=== PATIENT | female | born 1980 | race African-American/Black ===

== ENCOUNTER 2023-12-20 10:37 | Emergency (ER) | payer BC ==
[2023-12-20 10:58] VITALS: BP 141/84; PULSE 71; RESP 18; TEMP 98; BMI 23.5
[2023-12-20] MEDS ORDERED: IBUPROFEN 600 MG TABLET (FP) PO ONE (11:54)
[2023-12-20] MEDS ORDERED: ACETAMINOPHEN 500 MG TABLET (FP) ONE (11:54)
[2023-12-20] MEDS: ACETAMINOPHEN 500 MG TABLET (FP) PO ONE (11:57)
[2023-12-20] MEDS: IBUPROFEN 600 MG TABLET (FP) PO ONE (11:57)
[2023-12-20 12:30] LABS: EPI CELLS 4 /uL (0-25.1); HYALINE CASTS 0 /uL (0-3.1); PH,URINE 5.5 (5.0-8.0); URINE APPEARANCE CLEAR; URINE BACTERIA 132 /uL (0-1359); URINE BILIRUBIN NEGATIVE (NEGATIVE); URINE COLOR YELLOW; URINE GLUCOSE (UA) NEGATIVE (NEGATIVE); URINE KETONE NEGATIVE (NEGATIVE); URINE LEUK ESTERASE NEGATIVE (NEGATIVE); URINE NITRITE NEGATIVE (NEGATIVE); URINE PROTEIN NEGATIVE (NEGATIVE); URINE RBC 4 /uL (0-23.9); URINE UROBILINOGEN 0.2 mg/dL (0.2-1.0); URINE WBC 3 /uL (0-25.8)
== END 2023-12-20 13:44 | disposition home or self-care (01) ==
LOC: JERFT 10:37
DX: M54.50 Low back pain, unspecified (principal)
CPT/HCPCS: 72100-TC-FY; 81003; 84703; 87086; 99284-25